=== PATIENT | female | born 1950 | race Caucasian/White ===

== ENCOUNTER 2018-01-20 01:53 | Inpatient (IN) | payer OTHER ==
[~2018-01-20] VITALS: Ht 152.4 cm; Wt 89.8 kg
[~2018-01-20 01:53] MED LIST: ASPIRIN EC81 M1 PO; FISH OIL 1,0001 EAC4 PO; VITAMIN B-121000 MC3 PO; VITAMIN D2000 UNIT PO
--- NOTE | 2018-01-20 11:04 | Operative Report ---
Operative/Inv Procedure Report Surgery Date: 01/20/18 Name of Procedure: cysto: bilateral stent insertion Pre-Operative Diagnosis: pelvic prolapse Post-Operative Diagnosis: same Estimated Blood Loss: scant Surgeon/Heat Curer: MD May Arnold-urology Anesthesia: general endotracheal tube Specimens: ucx Complications: none Operative/Procedure Note Note: The patient was taken to the operating room and placed on the OR table in supine position. Timeout was performed, with the patient awake, to confirm identify, planned procedures, anesthesia, antibiotics and other pertinent shaka-operative information. After adequate anesthesia, and IV antibiotics, the patient was placed in lithotomy Yellow-fin stirrups. She was then draped and prepped in the usual surgical fashion, including a vaginal prep. A 22 [place] cystoscope sheath with a 30 angle lens was inserted into the bladder without significant difficulty. The bladder was thoroughly and systematically examined, and was noted to be free of tumor, free of stone, free of endometriosis. Both ureteral orifices were in their orthotopic positions with clear reflux bilaterally. Under direct visualization the left orifice was intubated with a 5 [place] whistle-tip catheter, which was advanced easily into the left kidney pelvis. The right ureteral orifice was intubated with a second 5 [place] ureteral whistle tip catheter, and advanced into the right renal pelvis without difficulty. For identification purposes the blue marked stent went into the left kidney and the right ureteral stent was marked red. Urine culture was obtained and sent to pathology. The cystoscope was then removed leaving both stents in proper place. An 18 [place] Grajeda catheter was inserted draining clear fluid and 10 mL of sterile water was then placed in the balloon. The ends ureteral stents, which protruded externally, were taped to the Grajeda catheter in order to secure their position. The individual ureteral stents were then connected to their individual drainage devices. All sponge needle and instrument count were correct at the end of this case. The patient tolerated the procedure well. The patient was then placed in supine position with Venodyne's in place. At this point, was able to proceed with the patient's surgery. Discharge Disposition: proceed with dr. george CC: Jordan May MD
--- NOTE | 2018-01-20 12:38 | Operative Report ---
Operative/Inv Procedure Report Surgery Date: 01/20/18 Name of Procedure: Total abdominal hysterectomy bilateral salpingo-oophorectomy vaginal vault suspension removal of stents Pre-Operative Diagnosis: Total procidentia Post-Operative Diagnosis: Same Estimated Blood Loss: 500 Surgeon/Mental Retardation Aide: Charles MARIN,Jane Villela Anesthesia: general endotracheal tube, block Operative/Procedure Note Note: Regional patient was taken the operating room placed supine position after adequate anesthesia patient placed in dorsal position vagina from dorsal fashion bladder was catheterized cystoscopy performed by Dr. Cristina will dictate that part of the case on patient was returned supine position the abdomen was prepped and draped in sterile fashion timeout had been performed by all parties present on antibiotics and received on Locking been performed through a Pfannenstiel skin incision 2 fingerbreadths of symptoms pubis skin was cut was carried down to rectus fascia which was cut in curvilinear fashion either direction peritoneal cavity was entered high into the abdomen Moran across posterior usual fashion patient was placed in Trendelenburg round ligament right was identified suture-ligated 0 round ligament left was identified suture-ligated ligated using 0 bladder flap was felt sharply as well as bluntly this point cervical branches uterine artery clamped and cut to level of the external os on this point the bulbar surface in the back on was from the uterosacrals using a Bovie on the vagina was entered posteriorly clamped and held in place and specimen was removed the vaginal cuff was oversewn using running locking suture of 0 on interrupted [id number] for hemostasis hemostasis was apparent uterosacrals were all individually ligated and suture ligated to the abdominal fascia for vault suspension hemostasis was apparent the right tube and ovary were clamped I 2 with Julian ducts and cut and removed and oversewn using 0 the left tube and ovary were clamped 2 using Julian ducts and oversewn 2 using 0 and removed patient tolerated this well hemostasis was apparent the abdomen was irrigated copious amounts warm sounds are clear peritoneum was reapproximated 0 fascia was reapproximated to continue sutures #1 skin was reapproximated jeff at the end the case sterile dressings were applied the vagina was irrigated found to be hemostatic there was no cystocele or rectocele at the end the case on and the patient was extubated and transported recovery room awake alert counts correct the stents removed bilaterally tip intact
[2018-01-20 14:15] VITALS: BP 156/70
[2018-01-20 16:10] VITALS: BP 140/76
[2018-01-20 18:00] VITALS: BP 142/84
[2018-01-20 20:00] VITALS: BP 138/72
[2018-01-20 22:00] VITALS: BP 142/84
[2018-01-20 22:01] VITALS: BP 142/84
[2018-01-21] VITALS (7 sets, daily range): BP systolic 120–150; BP diastolic 60–85
[2018-01-21 07:43] LABS: ABSOLUTE BASOPHIL COUNT 0 /CUMM (0.0-0.2); ABSOLUTE EOSINOPHIL COUNT 0 /CUMM (0.0-0.7); ABSOLUTE GRANULOCYTE CT 10.1 /CUMM (1.4-6.5); ABSOLUTE LYMPH COUNT 0.9 /CUMM (1.2-3.4); ABSOLUTE MONOCYTE COUNT 0.7 /CUMM (0.10-0.60); BASOPHIL % 0.1 % (0.0-2.0); EOSINOPHIL % 0 % (0-5); HEMATOCRIT 37.5 % (37-47); MEAN CORPUSCULAR HGB 29.2 PG (27.0-31.0); MEAN CORPUSCULAR HGB CONC 33.5 G/DL (33.0-37.0); MEAN CORPUSCULAR VOLUME 87.1 FL (81.0-99.0); MEAN PLATELET VOLUME 8.3 FL (7.4-10.4); PLATELET COUNT 228 /CUMM (130-400); RBC DISTRIBUTION WIDTH 13.7 % (11.5-14.5); WHITE BLOOD CELL COUNT 11.7 /CUMM (4.8-10.8)
--- NOTE | 2018-01-21 09:35 | PN- Post Delivery/GYN ---
Subjective Subjective: No complaints surgery reviewed with patient Objective Last 24 Hrs of Vital Signs/I&O Vital Signs Date Time Temp Pulse Resp B/P B/P Pulse O2 O2 Flow FiO2 Mean Ox Delivery Rate 01/21 0814 98.8 53 18 150/80 95 Room Air 01/21 0600 98.5 60 18 148/64 01/21 0400 98.1 65 16 143/80 01/21 0200 98.6 60 18 146/85 01/21 0000 98.3 66 18 136/74 01/21 0000 97 Nasal 1.0L Cannula 01/20 2201 98.3 68 16 142/84 97 Room Air 01/20 2200 98.3 68 16 142/84 01/20 2000 98.0 63 16 138/72 01/20 1800 97.9 68 18 142/84 01/20 1610 97.6 66 16 140/76 01/20 1600 96 Nasal 1.0L Cannula 01/20 1415 97.5 70 18 156/70 01/20 1415 94 Nasal 2.0L Cannula 01/20 1415 97.5 70 18 156/70 94 Nasal 2.0L Cannula Intake & Output 01/21 1600 01/21 0800 01/21 0000 Intake Total 1060 2165 Output Total 750 2500 Balance 310 -335 Intake, IV 1000 2075 Intake, Oral 60 90 Output, Other 350 Output, Urine 750 2150 Physical Exam: Pleasant petite white female in no apparent distress in bed HEENT anicteric Abdomen soft nontender Incision clean dry and intact Pride extremities negative edema negative Homans Assessment/Plan Assessment/Plan Assessment is status post total abdominal hysterectomy bilateral salpingo- oophorectomy vaginal vault suspension Plan increase activity discontinue Grajeda discontinue HEAD OF OPERATION AND LOGISTICS discontinue IV fluid on regular diet
[2018-01-22 06:50] VITALS: BP 138/74
[2018-01-22] MEDS ORDERED: IBUPROFEN800 M1 PO (10:28)
[2018-01-22] MEDS ORDERED: PERCOCET 5-3251 EACH PO (10:28)
--- NOTE | 2018-01-22 16:24 | Event Note ---
Event Note Event Note: I was asked by Dr Lynch of the emergency department who had spoken to Dr Soto to eprescribe 20 percocet to pts pharmacy as she had left the hospital and eprescribe was not possible by the attending. I reviewed the pts record and discharge information and eprescribed the medication to [facility] in [place]. He medication claim history was also reviewed on the [facility] website (zero controlled substance claims).
== END 2018-01-22 12:36 | DRG 743 ==
LOC: SDA 01:53 → ENRESERV 13:11 → ENTRNSPT 13:54 → EDTRNSPTSTS 14:09 → EDTRNSPT 14:09 → 2NB 14:17 → CMPTRNSPT 14:25 → 2NB 01-22 12:36
PROVIDERS: Specialist
PROC: 0TP98DZ Removal of Intraluminal Device from Ureter, Via Natural or Artificial Opening Endoscopic (ICD-10-PCS; principal; 2018-01-20)
PROC: 0UT20ZZ Resection of Bilateral Ovaries, Open Approach (ICD-10-PCS; principal; 2018-01-20)
PROC: 3E0T3BZ Introduction of Anesthetic Agent into Peripheral Nerves and Plexi, Percutaneous Approach (ICD-10-PCS; principal; 2018-01-20)
PROC: 0UT70ZZ Resection of Bilateral Fallopian Tubes, Open Approach (ICD-10-PCS; principal; 2018-01-20)
PROC: 0USG0ZZ Reposition Vagina, Open Approach (ICD-10-PCS; principal; 2018-01-20)
PROC: 0UT90ZZ Resection of Uterus, Open Approach (ICD-10-PCS; principal; 2018-01-20)
PROC: 0T768DZ Dilation of Right Ureter with Intraluminal Device, Via Natural or Artificial Opening Endoscopic (ICD-10-PCS; 2018-01-20)
PROC: 0T748DZ Dilation of Left Kidney Pelvis with Intraluminal Device, Via Natural or Artificial Opening Endoscopic (ICD-10-PCS; 2018-01-20)
DX: N81.3 Complete uterovaginal prolapse (principal); I48.0 Paroxysmal atrial fibrillation; Z96.653 Presence of artificial knee joint, bilateral
CPT/HCPCS: 36415; 36592; 87086; J0694; J1100; J1170; J1200; J1650; J1885; J2405